=== PATIENT | female | born 1995 | race Caucasian/White ===

== ENCOUNTER 2018-06-30 06:46 | Outpatient (CLI) | payer OTHER ==
--- NOTE | 2018-06-30 08:26 | ULT ---
GALLBLADDER ULTRASOUND: Date: 06/30/18 HISTORY: Abdominal pain. Epigastric pain. COMPARISON: None. TECHNIQUE: Utilizing multihertz transducer, sonographic imaging of the right upper quadrant is performed in the longitudinal and transverse plane. FINDINGS: Visualized pancreas has a normal echotexture. Hepatic parenchyma demonstrates a normal contour. No he patic masses or intrahepatic biliary dilatation. Right hepatic lobe measures 16.5 cm. Main portal vein is patent. Appropriate direction of flow. Right kidney has a normal cortical echotexture. No hydronephrosis. Right kidney measures 5.9 x 11.0 x 3.7 cm. No sonographic evidence of cholelithiasis, gallbladder wall thickening, or pericholecystic fluid. Neg ative Burch's sign. Common bile duct diameter is 0.3 cm. IMPRESSION: Unremarkable right upper quadrant ultrasound. POS: [facility]
== END 2018-06-30 06:47 | disposition home or self-care (01) ==
LOC: BICULT 06:46
PROVIDERS: ATTEND Internal Medicine Gastroenterology
DX: R10.13 Epigastric pain (principal)
CPT/HCPCS: 76705